=== PATIENT | male | born 1955 | race Caucasian/White ===

== ENCOUNTER 2016-07-19 12:27 | Emergency (ER) | payer MEDICARE ==
[~2016-07-19] VITALS: Ht 167.6 cm; Wt 102.3 kg
[~2016-07-19 12:27] MED LIST: DEPA250T2 PO; METF500 PO; METO50TA PO; MORP1INJ IMPLANPUMP; PERC10TA27 PO; PRED5TAB OR; PRIN20TA2 PO; ZITH250T PO
[2016-07-19 12:33] VITALS: PULSE 71; RESP 16; TEMP 98.4; O2SAT 100
[2016-07-19] MEDS ORDERED: DEPA500T3 PO (12:51)
[2016-07-19] MEDS ORDERED: PERC10TA27 PO (12:51)
[2016-07-19] MEDS ORDERED: LISI-515 PO (12:51)
[2016-07-19] MEDS ORDERED: MORP1TAB24 PO (12:51)
[2016-07-19] MEDS ORDERED: PRED5TAB PO (12:51)
[2016-07-19] MEDS ORDERED: PARO20TA2 PO (12:51)
[2016-07-19] MEDS ORDERED: METF500T PO (12:51)
[2016-07-19] MEDS ORDERED: METO50TA PO (12:53)
[2016-07-19] MEDS ORDERED: CLON.5 PO (12:53)
--- NOTE | 2016-07-19 13:12 | PD ---
HPI Chief Complaint: Musculoskeletal Complaint Time Seen by Provider: 12:53 Travel History International Travel<30 days: No Contact w/Intl Traveler<30days: No Traveled to known affect area: No History of Present Illness HPI This patient saw his pain management physician today. He has shruthi's syndrome and chronic pain. He's been having some increased pain in his right knee without injury. No fevers. His pain doctor wanted him to make sure he was not a blood clot. That's why he is here. Pain is moderately severe PFSH Past Medical History Arthritis: Yes (Shruthi's syndrome) Asthma: No Autoimmune Disease: Yes (REITERS) Blood Disorders: No Anxiety: Yes Depression: No Heart Rhythm Problems: No Cancer: Yes (Polyps) Cardiovascular Problems: Yes (htn on meds) Chemotherapy: No Chest Pain: No Congestive Heart Failure: No COPD: No Cerebrovascular Accident: Yes (TIA) Diabetes: Yes (Type 2) Patient Takes Glucophage: Yes (07-20-799) Diminished Hearing: No Endocrine: Yes GERD: Yes Glaucoma: No Genitourinary: Yes (BPH) Headaches: Yes Hepatitis: No Hiatal Hernia: No Hypertension: Yes Immune Disorder: Yes (Shruthi's ) Implanted Vascular Access Dvce: Yes Kidney Stones: No Medical other: Yes (SHRUTHI'S SYNDROME) Musculoskeletal: Yes (ARTHRITIS) Neurologic: Yes (PAIN STIMULATOR) Psychiatric: Yes Reproductive: Yes (BPH) Respiratory: Yes (PNEUMONIA X3) Immunizations Current: Yes Migraines: No Myocardial Infarction: No Pneumonia: Yes Radiation Therapy: No Renal Failure: No Seizures: No Sickle Cell Disease: No Sleep Apnea: Yes Thyroid Disease: No Ulcer: No Tetanus Vaccination: > 5 Years Influenza Vaccination: Yes PNEUMOCCOCAL Vaccine (Year): 2009 Past Surgical History Abdominal Surgery: Yes (APPE, SHAMA) AICD: No Appendectomy: Yes Arteriovenous Shunt: No Body Medical Devices: Spinal cord stimulator, morphine pump Cardiac Surgery: No Cholecystectomy: Yes Ear Surgery: No Endocrine Surgery: No Eye Surgery: No Genitourinary Surgery: No Gynecologic Surgery: No Insulin Pump: No Joint Replacement: No Neurologic Surgery: Yes (Spinal cord stimulator MORPHINE PUMP) Oral Surgery: No Pacemaker: No Thoracic Surgery: No Other Surgery: Yes (Skin grafts, morphine pump, double mastectomy ) Social History Alcohol Use: No (15 YRS) Tobacco Use: No (15 YRS) Substance Use: No Allergies-Medications (Allergen,Severity, Reaction): Coded Allergies: No Known Allergies (Verified , 07/19/16) Reported Meds & Prescriptions Reported Meds & Active Scripts Active Reported Klonopin (Clonazepam) 0.5 Mg Tab 0.5 Mg PO HS Metoprolol Tartrate 50 Mg Tab 50 Mg PO BID Morphine ER (Morphine Sulfate) 15 Mg Tab 15 Mg PO CONTINUOUS Percocet (Oxycodone-Acetaminophen) 10-325 mg Tab 1 Tab PO TID PRN Paroxetine (Paroxetine HCl) 20 Mg Tab 20 Mg PO DAILY Prednisone 5 Mg Tab 5 Mg PO DAILY Metformin (Metformin HCl) 500 Mg Tab 500 Mg PO BIDPC With meals Lisinopril 20 Mg Tab 20 Mg PO DAILY Depakote ER (Divalproex Sodium) 500 Mg Dilia 500 Mg PO DAILY Review of Systems General / Constitutional: No: Fever HENT: No: Headaches Cardiovascular: No: Chest Pain or Discomfort Physical Exam Narrative SKIN: Focused skin assessment reveals no rash or ulcers. Skin is warm and dry. Palpation shows no induration or nodules. Psych: Normal mood and affect. Normal insight and judgment. Right knee: Patient has readily reproducible tenderness on the lateral aspect and medial aspect of the right knee at the joint line. There is no erythema or warmth. No effusion or bruising. There is no calf tenderness or popliteal fossa tenderness. Data Data Last Documented VS Vital Signs Date Time Temp Pulse Resp B/P Pulse Ox O2 Delivery O2 Flow Rate FiO2 07/19/16 12:33 98.4 71 16 100 Orders Ondansetron Inj (Zofran Inj) (07/19/16 13:15) Morphine Inj (Morphine Inj) (07/19/16 13:15) MDM Medical Decision Making Medical Screen Exam Complete: Yes Emergency Medical Condition: Yes Medical Record Reviewed: Yes Differential Diagnosis Ligament strain, DVT, contusion Narrative Course I have reviewed the patient's electronic medical record. I can rule out DVT by examining this patient. He does not require ultrasound pink. No clinical suspicion of DVT. He has musculoskeletal pain is readily reproducible on palpation of the bony elements of the knee I gave him injection of morphine and Zofran for symptom relief He should ice and elevate and limit weightbearing. He has crutches at home. He will contact his family physician for follow-up Diagnosis Primary Impression: Right knee pain Qualified Code: M25.561 - Acute pain of right knee Additional Instructions: The patient was advised to follow up with their physician and return if they worsen. Ice and elevate and limit weightbearing on right knee Med/Other Pt SpecificInfo: Other Disposition: 01 DISCHARGE HOME Condition: Stable Ivan Null MD Jul 19, 2016 13:12
[2016-07-19] MEDS ORDERED: ONDANSETRON HCL 4 MG/2 ML VIAL IM ONE (13:15)
[2016-07-19] MEDS ORDERED: MORPHINE SULFATE 4 MG/ML INJ IM ONE (13:15)
[2016-07-19 13:35] VITALS: BP 138/71; PULSE 87; RESP 18; O2SAT 97
== END 2016-07-19 13:43 | disposition home or self-care (01) ==
LOC: PHED 12:27
DX: M25.561 Pain in right knee (principal); M02.30 Reiter's disease, unspecified site; E11.9 Type 2 diabetes mellitus without complications; I10 Essential (primary) hypertension; Z79.4 Long term (current) use of insulin; Z86.73 Personal history of transient ischemic attack (TIA), and cerebral infarction without residual deficits
CPT/HCPCS: 96372; 99283; J2270; J2405

== ENCOUNTER 2017-03-10 12:18 | Emergency (ER) | payer MEDICARE ==
[~2017-03-10] VITALS: Ht 167.6 cm; Wt 100.0 kg
[~2017-03-10 12:18] MED LIST changes: +CLON.5 PO; -DEPA250T2 PO; +DEPA500T3 PO; +LISI-515 PO; -METF500 PO; +METF500T PO; -MORP1INJ IMPLANPUMP; +MORP1TAB24 PO; +PARO20TA2 PO; -PRED5TAB OR; +PRED5TAB PO; -PRIN20TA2 PO; -ZITH250T PO
[2017-03-10 12:20] VITALS: BP 139/79; PULSE 67; RESP 16; TEMP 98.8; O2SAT 97
--- NOTE | 2017-03-10 12:59 | PD ---
HPI Chief Complaint: GI Complaint Time Seen by Provider: 12:35 Travel History International Travel<30 days: No Contact w/Intl Traveler<30days: No Traveled to known affect area: No History of Present Illness HPI patient has h/o shruthi syndrome and states that he's used to having diarrhea but this is more persistent over past month or so, worsening abdominal pain, crampy/sharp, 9/10, nonradiating, without any alleviating /aggravating factors. patient is on morphine pump for reiters syndrome...patient saw pcp dr flores?, who recc patient come to er for evaluation PFSH Past Medical History Arthritis: Yes (Shruthi's syndrome) Asthma: No Autoimmune Disease: Yes (REITERS) Blood Disorders: No Anxiety: Yes Depression: No Heart Rhythm Problems: No Cancer: Yes (Polyps) Cardiovascular Problems: Yes (htn on meds) Chemotherapy: No Chest Pain: No Congestive Heart Failure: No COPD: No Cerebrovascular Accident: Yes Diabetes: Yes Diminished Hearing: No Endocrine: Yes GERD: Yes Glaucoma: No Genitourinary: Yes (BPH) Headaches: Yes Hepatitis: No Hiatal Hernia: No Hypertension: Yes Immune Disorder: Yes (Shruthi's ) Implanted Vascular Access Dvce: Yes Kidney Stones: No Musculoskeletal: Yes (ARTHRITIS) Neurologic: Yes (PAIN STIMULATOR) Psychiatric: Yes Reproductive: Yes (BPH) Respiratory: Yes (PNEUMONIA X3) Immunizations Current: Yes Migraines: No Myocardial Infarction: No Pneumonia: Yes Radiation Therapy: No Renal Failure: No Seizures: No Sickle Cell Disease: No Sleep Apnea: Yes Thyroid Disease: No Ulcer: No PNEUMOCCOCAL Vaccine (Year): 2009 Past Surgical History Abdominal Surgery: Yes (APPE, SHAMA) AICD: No Appendectomy: Yes Arteriovenous Shunt: No Body Medical Devices: Spinal cord stimulator, morphine pump Cardiac Surgery: No Cholecystectomy: Yes Ear Surgery: No Endocrine Surgery: No Eye Surgery: No Genitourinary Surgery: No Gynecologic Surgery: No Insulin Pump: No Joint Replacement: No Neurologic Surgery: Yes (Spinal cord stimulator MORPHINE PUMP) Oral Surgery: No Pacemaker: No Thoracic Surgery: No Other Surgery: Yes (Skin grafts, morphine pump, double mastectomy ) Social History Alcohol Use: No (15 YRS) Tobacco Use: No (15 YRS) Substance Use: No Allergies-Medications (Allergen,Severity, Reaction): Coded Allergies: No Known Allergies (Verified Adverse Reaction, Unknown, 03/10/17) Reported Meds & Prescriptions Reported Meds & Active Scripts Active Flagyl (Metronidazole) 500 Mg Tab 500 Mg PO TID 7 Days Cipro (Ciprofloxacin HCl) 500 Mg Tab 500 Mg PO BID 7 Days Reported Glimepiride 2 Mg Tab 2 Mg PO DAILY Take with breakfast or first main meal Ciprofloxacin (Ciprofloxacin HCl) 500 Mg Tab 500 Mg PO BID Flagyl (Metronidazole) 500 Mg Tab 500 Mg PO TID Paxil (Paroxetine HCl) 10 Mg Tab 10 Mg PO DAILY Klonopin (Clonazepam) 0.5 Mg Tab 0.5 Mg PO BID Proair Hfa (Albuterol Sulfate) 90 Mcg Hfa.aer.ad Meclizine (Meclizine HCl) 25 Mg Tab 25 Mg PO TID PRN Metoprolol Tartrate 50 Mg Tab 50 Mg PO BID Morphine ER (Morphine Sulfate) 15 Mg Tab 15 Mg PO CONTINUOUS Percocet (Oxycodone-Acetaminophen) 10-325 mg Tab 1 Tab PO TID PRN Paroxetine (Paroxetine HCl) 20 Mg Tab 20 Mg PO DAILY Prednisone 5 Mg Tab 5 Mg PO DAILY Metformin (Metformin HCl) 500 Mg Tab 500 Mg PO BIDPC With meals Lisinopril 20 Mg Tab 20 Mg PO DAILY Depakote ER (Divalproex Sodium) 500 Mg Dilia 500 Mg PO DAILY Review of Systems Except as stated in HPI: all other systems reviewed are Neg Gastrointestinal: Positive: Abdominal Pain Physical Exam Narrative GENERAL: SKIN: Warm and dry. HEAD: Atraumatic. Normocephalic. EYES: Pupils equal and round. No scleral icterus. No injection or drainage. ENT: No nasal bleeding or discharge. Mucous membranes pink and moist. NECK: Trachea midline. No JVD. CARDIOVASCULAR: Regular rate and rhythm. RESPIRATORY: No accessory muscle use. Clear to auscultation. Breath sounds equal bilaterally. GASTROINTESTINAL: Abdomen soft, non-tender, nondistended. MUSCULOSKELETAL: Extremities without clubbing, cyanosis, or edema. No obvious deformities. NEUROLOGICAL: Awake and alert. No obvious cranial nerve deficits. Motor grossly within normal limits. Five out of 5 muscle strength in the arms and legs. Normal speech. PSYCHIATRIC: Appropriate mood and affect; insight and judgment normal. Data Data Last Documented VS Orders Orders Electrocardiogram (03/10/17 12:35) Complete Blood Count With Diff (03/10/17 12:35) Comprehensive Metabolic Panel (03/10/17 12:35) Troponin I (03/10/17 12:35) Prothrombin Time / Inr (Pt) (03/10/17 12:35) Act Partial Throm Time (Ptt) (03/10/17 12:35) Lipase (03/10/17 12:35) Urinalysis - C+S If Indicated (03/10/17 12:35) Ct Abd/Pel W/O Iv Contrast (03/10/17 12:35) Ondansetron Inj (Zofran Inj) (03/10/17 13:15) Sodium Chlor 0.9% 1000 Ml Inj (Ns 1000 M (03/10/17 13:05) Hydromorphone Pf Inj (Dilaudid Pf Inj) (03/10/17 13:15) Ed Discharge Order (03/10/17 15:25) Hydromorphone Pf Inj (Dilaudid Pf Inj) (03/10/17 15:45) Labs Laboratory Tests Test 03/10/17 13:02 White Blood Count 7.4 TH/MM3 Red Blood Count 4.32 MIL/MM3 Hemoglobin 13.7 GM/DL Hematocrit 39.7 % Mean Corpuscular Volume 92.0 FL Mean Corpuscular Hemoglobin 31.7 PG Mean Corpuscular Hemoglobin Concent 34.5 % Red Cell Distribution Width 12.9 % Platelet Count 151 TH/MM3 Mean Platelet Volume 8.9 FL Neutrophils (%) (Auto) 64.7 % Lymphocytes (%) (Auto) 25.2 % Monocytes (%) (Auto) 5.7 % Eosinophils (%) (Auto) 3.6 % Basophils (%) (Auto) 0.8 % Neutrophils # (Auto) 4.8 TH/MM3 Lymphocytes # (Auto) 1.9 TH/MM3 Monocytes # (Auto) 0.4 TH/MM3 Eosinophils # (Auto) 0.3 TH/MM3 Basophils # (Auto) 0.1 TH/MM3 CBC Comment DIFF FINAL Differential Comment Prothrombin Time 11.0 SEC Prothromb Time International Ratio 1.1 RATIO Activated Partial Thromboplast Time 25.8 SEC Urine Color YELLOW Urine Turbidity CLEAR Urine pH 5.0 Urine Specific Hasty 1.033 Urine Protein NEG mg/dL Urine Glucose (UA) 1000 mg/dL Urine Ketones NEG mg/dL Urine Occult Blood NEG Urine Nitrite NEG Urine Bilirubin NEG Urine Urobilinogen LESS THAN 2.0 MG/DL Urine Leukocyte Esterase NEG Urine RBC LESS THAN 1 /hpf Urine WBC LESS THAN 1 /hpf Urine Squamous Epithelial Cells <1 /hpf Urine Mucus FEW /lpf Microscopic Urinalysis Comment CULT NOT INDICATED Blood Urea Nitrogen 12 MG/DL Creatinine 0.86 MG/DL Random Glucose 332 MG/DL Total Protein 7.5 GM/DL Albumin 3.6 GM/DL Calcium Level 9.2 MG/DL Alkaline Phosphatase 92 U/L Aspartate Amino Transf (AST/SGOT) 55 U/L Alanine Aminotransferase (ALT/SGPT) 90 U/L Total Bilirubin 0.5 MG/DL Sodium Level 134 MEQ/L Potassium Level 4.4 MEQ/L Chloride Level 98 MEQ/L Carbon Dioxide Level 29.3 MEQ/L Anion Gap 7 MEQ/L Estimat Glomerular Filtration Rate 91 ML/MIN Troponin I LESS THAN 0.02 NG/ML Lipase 190 U/L [facility] Medical Decision Making Medical Screen Exam Complete: Yes Emergency Medical Condition: Yes Medical Record Reviewed: Yes Differential Diagnosis sbo v ileus v pancreatitis v diverticulitis Narrative Course normal cbc, normal lipase, ct neg for sbo/ileus/colitis but positive for diverticulosis Diagnosis Primary Impression: Diverticulosis Qualified Codes: K57.30 - Diverticulosis of large intestine without perforation or abscess without bleeding Patient Instructions: Diverticulosis Diet (GEN), General Instructions Scripts Metronidazole (Flagyl) 500 Mg Tab 500 MG PO TID for Infection for 7 Days, #21 TAB 0 Refills Prov: Nathan Bryson MD 03/10/17 Ciprofloxacin (Cipro) 500 Mg Tab 500 MG PO BID for Infection for 7 Days, #14 TAB 0 Refills Prov: Nathan Bryson MD 03/10/17 Disposition: 01 DISCHARGE HOME Condition: Stable Nathan Bryson MD Mar 10, 2017 12:59
[2017-03-10] MEDS ORDERED: SODIUM CHLOR 0.9% 1000 ML INJ 1,000 ML IV SCH (13:05)
[2017-03-10 13:11] VITALS: BP 115/56; PULSE 66; RESP 19; TEMP 98.7; O2SAT 97
[2017-03-10] MEDS ORDERED: HYDROmorphone HCL PF 1 MG/ML VIAL IVS ONE (13:15)
[2017-03-10] MEDS ORDERED: ONDANSETRON HCL 4 MG/2 ML VIAL IVP ONE (13:15)
[2017-03-10 13:28] LABS: AUTOMATED NEUTROPHIL # 4.8 TH/MM3 (1.8-7.7); BASOPHIL # 0.1 TH/MM3 (0-0.2); BASOPHIL % 0.8 % (0.0-2.0); EOSINOPHIL # 0.3 TH/MM3 (0-0.4); EOSINOPHIL % 3.6 % (0.0-4.0); HEMATOCRIT 39.7 % (39.0-51.0); HEMO FLAGS DIFF FINAL; LYMPH % 25.2 % (9.0-44.0); LYMPHOCYTE # 1.9 TH/MM3 (1.0-4.8); MEAN CORPUSCULAR HEMOGLOBIN 31.7 PG (27.0-34.0); MEAN CORPUSCULAR HGB CONC 34.5 % (32.0-36.0); MONO % 5.7 % (0.0-8.0); NEUT % 64.7 % (16.0-70.0); PLATELET COUNT 151 TH/MM3 (150-450); RED BLOOD COUNT 4.32 MIL/MM3 (4.50-5.90); RED CELL DISTRIBUTION WIDTH 12.9 % (11.6-17.2); WHITE BLOOD COUNT 7.4 TH/MM3 (4.0-11.0)
[2017-03-10 13:39] LABS: APTT (PATIENT) 25.8 SEC (24.3-30.1); INTERNATIONAL NORMALIZED RATIO 1.1 RATIO
[2017-03-10 13:48] LABS: ALT (GPT) 90 U/L (12-78); ANION GAP 7 MEQ/L (5-15); AST (GOT) 55 U/L (15-37); BICARBONATE 29.3 MEQ/L (21.0-32.0); BLOOD UREA NITROGEN 12 MG/DL (7-18); CHLORIDE 98 MEQ/L (98-107); GLOMERULAR FILTRATION RATE 91 ML/MIN (>89); POTASSIUM 4.4 MEQ/L (3.5-5.1); SODIUM (NA) 134 MEQ/L (136-145)
[2017-03-10 13:52] LABS: ALKALINE PHOSPHATASE 92 U/L (45-117); TOTAL BILIRUBIN ADULT 0.5 MG/DL (0.2-1.0)
[2017-03-10] MEDS ORDERED: GLIM2TAB PO (13:57)
[2017-03-10] MEDS ORDERED: METR-1 PO ×2 (13:57→15:24)
[2017-03-10] MEDS ORDERED: CIPR500T2 PO (13:57)
[2017-03-10] MEDS ORDERED: CLON.5 PO (13:57)
[2017-03-10] MEDS ORDERED: MECL-62 PO (13:57)
[2017-03-10] MEDS ORDERED: PAXI10TA8 PO (13:57)
[2017-03-10] MEDS ORDERED: ALBUAER3 (13:57)
[2017-03-10 13:58] LABS: BLOOD, URINE NEG (NEG); COMMENT (UR) CULT NOT INDICATED; CULTURE IF INDICATED CULT NOT INDICATED; GLUCOSE,URINE 1000 mg/dL (NEG); KETONE, URINE NEG (NEG); MUCUS URINE FEW /lpf (OCC); NITRITE,URINE NEG (NEG); SQUAMOUS EPITHELIAL CELL URINE <1 /hpf (0-5); URINE COLOR YELLOW (YELLW/STRAW)
--- NOTE | 2017-03-10 14:12 | RADRPT ---
EXAM DATE/TIME: 03/10/2017 13:43 [facility] COMPARISON: No previous studies available for comparison. INDICATIONS : Diffuse abdomen pain with vomiting. ORAL CONTRAST: No oral contrast ingested. RADIATION DOSE: 12.09 CTDIvol (mGy) MEDICAL HISTORY : Cardiovascular disease. Hypertension. Diabetes mellitus type 2.Swollen prostate, Polyps, Ryders Syndr ome. SURGICAL HISTORY : Cholecystectomy. Appendectomy. Pain pumps. ENCOUNTER: Initial ACUITY: 2 days PAIN SCALE: 8/10 LOCATION: Bilateral upper quadrant epigrastric region. TECHNIQUE: Volumetric scanning of the abdomen and pelvis was performed. Using automated exposure control and ad justment of the mA and/or kV according to patient size, radiation dose was kept as low as reasonably achievable to obtain optimal diagnostic quality images. DICOM format image data is available electro nically for review and comparison. FINDINGS: LOWER LUNGS: The visualized lower lungs are clear. LIVER: Homogeneous density without lesion. There is no dilation of the biliary tree. There is moderate to s evere hepatic steatosis. Patient is status post cholecystectomy SPLEEN: Normal size without lesion. PANCREAS: Within normal limits. KIDNEYS: Normal in size and shape. There is no mass, stone, or hydronephrosis. ADRENAL GLANDS: Within normal limits. VASCULAR: There is no aortic aneurysm. BOWEL/MESENTERY: The stomach, small bowel, and colon demonstrate no acute abnormality. Mild diverticulosis is noted g reatest in the sigmoid colon with no inflammatory change. There is no free intraperitoneal air or flu id. ABDOMINAL WALL: Within normal limits. RETROPERITONEUM: There is no lymphadenopathy. BLADDER: No wall thickening or mass. REPRODUCTIVE: Within normal limits. INGUINAL: There is no lymphadenopathy or hernia. MUSCULOSKELETAL: Within normal limits for patient age. A spinal stimulator device is noted in place in the lumbar spin e. CONCLUSION: 1. Mild diverticulosis with no inflammatory change. 2. Moderate to severe hepatic steatosis. 3. Status post cholecystectomy Jerome Lowe MD on March 10, 2017 at 14:06 Board Certified Radiologist. This report was verified electronically.
[2017-03-10] MEDS ORDERED: CIPR-9 PO (15:24)
[2017-03-10] MEDS ORDERED: HYDROmorphone HCL PF 1 MG/ML VIAL IV PUSH ONE (15:45)
[2017-03-10 16:12] VITALS: BP 127/64
--- NOTE | 2017-03-11 16:10 | EKG ---
Date Performed: 03/10/2017 Time Performed: 12:53:59 PTAGE: 62 years EKG: Sinus rhythm BORDERLINE ECG Since PREVIOUS TRACING , no significant change noted PREVIOUS TRACIN02/10/2015 12.47 DOCTOR: Nicole Saucedo Interpretating Date/Time 03/11/2017 16:09:11
== END 2017-03-10 16:13 | disposition home or self-care (01) ==
LOC: NEPD 12:18
DX: K57.30 Diverticulosis of large intestine without perforation or abscess without bleeding (principal); R94.31 Abnormal electrocardiogram [ECG] [EKG]; I10 Essential (primary) hypertension; E11.9 Type 2 diabetes mellitus without complications; M02.30 Reiter's disease, unspecified site
CPT/HCPCS: 74176; 80053; 81001; 83690; 84484; 85025; 85610; 85730; 93005; 96361; 96374; 96375; 96376; 99285; J1170; J2405; J7030